=== PATIENT | female | born 1975 ===

== ENCOUNTER → 2018-09-02 22:55 | Outpatient (REF) | payer OTHER, SELFPAY ==
[2018-09-03 02:12] LABS: Thyroid Stimulating Hormone 2.04 uIU/mL (0.47-4.68)
[2018-09-03 09:50] LABS: Free T3, Triiodothyronine Free 4.14 pg/mL (2.77-5.27); Free T4, Direct Thyroxine 2.23 ng/dL (0.78-2.19)
[2018-09-07 08:14] LABS: Triiodothyronine T3 Reverse 35 ng/dL (8-25)
== END ==
LOC: LAB 22:55
PROVIDERS: Visit Provider Naturopath
DX: E06.3 Autoimmune thyroiditis (principal)
CPT/HCPCS: 36415; 84439; 84443; 84481; 84482